=== PATIENT | male | born 1955 | race Caucasian/White ===

== ENCOUNTER 2024-03-24 06:00 | Day surgery (SDC) | payer BC, MEDICARE ==
[2024-03-24] MEDS: Lactated Ringers 1,000 ML IV SCH (06:15)
[2024-03-24] MEDS ORDERED: Propofol 200 MG/20 ML SDV ONE ×2 (06:18→07:56)
[2024-03-24] MEDS ORDERED: Midazolam 1 MG/ML 2 ML SDV ONE (06:18)
[2024-03-24] MEDS ORDERED: Ondansetron 4 MG/2 ML SDV ONE (06:18)
[2024-03-24] MEDS ORDERED: Sodium Chloride 0.9% 10 ML Syringe FLUSH SCH (07:00)
[2024-03-24] MEDS ORDERED: Sodium Chloride 0.9% 10 ML Syringe FLUSH PRN (07:00)
[2024-03-24] MEDS ORDERED: ceFAZolin 2 GM Vial ONE (07:17)
[2024-03-24] MEDS ORDERED: Ondansetron 4 MG/2 ML SDV IVPUSH PRN (07:36)
[2024-03-24] MEDS ORDERED: fentaNYL 100 MCG/2 ML SDV IVPUSH PRN (07:36)
[2024-03-24] MEDS ORDERED: Lactated Ringers 1,000 ML ONE (07:36)
[2024-03-24] MEDS ORDERED: HYDROmorphone 0.5 MG/0.5 ML Syringe IVPUSH PRN (07:36)
[2024-03-24] MEDS: Morphine 8 MG, EPINEPHrine 0.3 MG, Cefuroxime 750 MG, Ketorolac 30 MG, Sodium Chloride ... PRN (08:20)
[2024-03-24] MEDS: Tranexamic Acid 1,000 MG/10 ML Vial ONE (08:21)
[2024-03-24] MEDS: VANCOmycin 1 GM SDV ONE (08:21)
[2024-03-24] MEDS: oxyCODONE 5 MG Tab PO PRN (10:29)
== END 2024-03-24 12:00 | disposition home or self-care (01) ==
LOC: JD.SDS 06:00
PROVIDERS: ATTEND Orthopaedic Surgery
DX: M16.11 Unilateral primary osteoarthritis, right hip (principal); Z79.899 Other long term (current) drug therapy
CPT/HCPCS: 0055T; 27130; 36415; 73501; 86850; 86900; 86901; 97110; 97116; 97161; A9270; C1713; C1776; J0171; J0690; J0697; J1885; J2250; J2272; J2405; J2704; J7120; J3490